=== PATIENT | male | born 1945 | race Caucasian/White ===

== ENCOUNTER → 2017-04-29 | Outpatient (CLI) | payer OTHER ==
[~2017-04-29] VITALS: Ht 165.1 cm; Wt 92.6 kg
[2017-04-29 16:10] VITALS: BP 144/61; PULSE 60; Ht 165.1 cm; Wt 92.6 kg
== END | disposition home or self-care (01) ==
LOC: C.NEUR 11:59
PROVIDERS: ATTEND Physician Assistant
DX: G47.33 Obstructive sleep apnea (adult) (pediatric) (principal)

== ENCOUNTER → 2017-06-27 | Outpatient (CLI) | payer OTHER ==
--- NOTE | 2017-06-28 06:20 | PAP/PSG TECHNICIAN REPORT ---
[facility] [employer] Polysomnogram Report Study name: None Report date: 06/28/2017 Study date: 06/27/2017 Referring Physician: Clemencia Swanson PA-C, PA-C Name: KERRI ARAUJO Interpreting Physician: Yury Burkett M.D. 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 Sex: Male Age: 71 StudyType: PSG PAP Weight: 204 lbs Height: 71 years, Height 5' 5" Neck Circum: 17.75 inches BMI: 33.94 Medications: Lamotrigine 250 mg, Primidone 250 mg, Crestor 40 mg, Folic Acid 1 mg, Aspirin 81 mg, Fish Oil 1200 mg, Glucosamine 1500 mg, Calcium/Vitamin D 600 mg Patient History 71 yr. old male here for a ASV sleep study. Patient is averaging a high AHI on BiPAP with a rate. Parameters Monitored NPSG: E1-M2, E2-M1, Fp1-M2, Fp2-M1, F3-M2, F4-M2, F4-M1, C3-M2, C4-M2, C4-M1, O1-M2, O2-M2, O2-M1, T3-M2, T4-M1, P3-M2, P4-M1, CHIN1, CHIN2, HR, EKG, Legs, PFLOW, SNOR, FLOW, CFLOW, Tidal Volume, THOR, ABDO, SpO2, PLTH, CPRESS, ETCO2 Wave, ETCO2, pH Sleep Architecture Sleep Stages Time at Lights Off 11:03:24 PM STAGES Time (min.) TST (%) Time at Lights On 5:42:54 AM Wake 38.5 -- Total Recording Time (TRT) 400.00 min. N1 26.0 7 Total Sleep Period (TSP) 396.5 min. N2 186.5 52 Total Sleep Time (TST) 361.0min. N3 67.0 19 Awake Time 38.5 min. REM 81.5 23 Wake after Sleep Onset 35.5 min. Sleep Efficiency (SE) 90 % Sleep Onset Latency (MONA) 3.0 min. Number of Stage 1 Shifts None Awakenings 15 Stage Changes 71 Number of REM periods 5 REM 81.5 23 REM Latency 75.5 min. NREM 279.5 77 Body Position Analysis Supine Right Left Side Prone Vertical Total Sleep Time (min.) 81.8 0.0 284.9 284.94 0.0 0.9 Total Sleep Time (%) 21% 0% 79% 79 0% N/A% Total Sleep Time REM (min.) 25.5 0.0 56.0 None 0.0 0.0 Total Sleep Time NREM (min.) 50.6 0.0 228.9 None 0.0 0.0 Intermittent Wake (min.) 5.7 0.0 31.8 None 0.0 0.9 Total Sleep Period (%) 20% None None None None None Arousals Myoclonus (PLM) * Events Count Index Events Count Index Spontaneous 2 0 Events Awake (PLMW) 12 18.7 Respiratory 1 0.3 Events Asleep w/ Arousal (PLMA) 11 1.8 PLM 11 2 Events Asleep w/o Arousal (PLMS) 23 3.8 Snoring 2 0 Total Asleep 34 5.7 Total 16 3 Total 46 7 Respiratory Analysis * CA OA MA CH H RERA Total Count 1 0 0 0 16 0 17 Index 0.2 0.0 0.0 0 2.7 0 2.8 Mean Duration 17.9 0.0 0.0 0.00 22.7 0.0 22.4 Longest Duration 17.9 0.0 0.0 0.00 0.0 0.0 46.9 Respiratory Event Summary Total Supine ~Supine Right Left Prone REM NREM Apneas Count 1 1 0 N/A 0 N/A 0 1 Index 0.2 1 0 N/A 0.0 N/A 0 0 Hypopneas (4% Desat) Count 16 8 8 N/A 8 N/A 0 16 Index 2.7 6.3 2 N/A 1.7 N/A 0.0 3.4 Apneas & All Hypopneas Count 17 9 8 N/A 8 N/A 0 17 Index 2.8 7 2 N/A 2 N/A 0.0 3.6 Respiratory Events (Thermal Molder+All Hyp+RERA) Count 17 9 8 N/A 8 N/A 0 17 Index 2.8 7 2 N/A 1.7 N/A 0.0 3.6 Respiratory Related Arousal Count 1 9 0 N/A 0 N/A 0 2 Index 0.3 2 0 N/A 0 N/A 0 0 Snoring Analysis Supine Right Left Prone REM NREM Total Snore duration 3.8 min Snores count 106 N/A 57 N/A 2 161 163 Snore mean duration 1.4 Sec Snores index 84 N/A 12 N/A 1.5 34.6 27.1 TST with snoring (%) 1.1% Desaturation Event Summary: Minimum %SpO2 Event Count Mean/Min/Max Duration(sec.) Desaturation Index % Time In Bed > 90 23 25.2 / 6.5 / 55.0 6.3 57.9 86 - 90 15 23.4 / 12.3 / 40.8 5.9 40.4 81 - 85 2 14.4 / 7.0 / 21.8 19.2 1.6 76 - 80 0 N/A 0.0 0.0 71 - 75 0 N/A 0.0 0.0 66 - 70 0 N/A 0.0 0.0 61 - 65 0 N/A 0.0 0.0 56 - 60 0 N/A 0.0 0.0 51 - 55 0 N/A 0.0 0.0 < 50 0 N/A 0.0 0.0 Total REM NREM Awake <50% 0.0 min. 0.0 min. 0.0 min. 0.0 min. 51 - 60% 0.0 min. 0.0 min. 0.0 min. 0.0 min. 61 - 70% 0.0 min. 0.0 min. 0.0 min. 0.0 min. 71 - 80% 0.0 min. 0.0 min. 0.0 min. 0.0 min. 81 - 90% 159.2 min. 39.2 min. 110.6 min. 9.5 min. 91 - 100% 219.3 min. 41.2 min. 164.8 min. 13.3 min. Average 91 91 91 90 Minimum SpO2 80 86 84 80 Desaturation Event Index 4.4 0.0 4.9 9.4 # Desat. Events below 89% 21 N/A 15 6 Time(%) with Saturation below 89% 17.9 3.3 12.9 1.7 Time(min.) with Saturation below 89% 67.8 12.7 48.8 6.3 Time (mins) REM (mins) NREM (mins) % of TST SpO2 Below 90% 16 N/A N16 25.5 SpO2 Below 88% 7 0 0 7 Heart Rate Analysis Min (bpm) Max (bpm) Average (bpm) Awake 48 196 61 NREM 50 127 56 REM 52 73 57 Overall 50 127 56 Supplemental O2 Values Minimum O2 level: None Value Start Time End Time [employer] Comments Mr. Araujo slept in the left and supine positions. No cardiac arrhythmia or PLMs noted. No bruxism noted. ASV was initiated at : Max Pressure:25.0 cm H2O Min EPAP:4.0 cm H2O Max EPAP:15.0 cm H2O Min PS:4.0 cm H2O Max PS:20.0 cm H2O Rate:Auto Comfort:BiFlex (3) No changes were made to the above settings. However 1 lpm 02 was added at 4:26 am, he was on ASV for 32.5 min AHI was 3.6 and was under 89 % for 56.3 minutes. Oxygen was increased to 2 lpm at 5:00 am. He was on ASV for 356.00 minutes and was under 89% for 61.5 minutes, was under 89% on 1 lpm for 5.2 minutes. Patients own ResMed F20, was used during titration. Mr. Araujo awoke to use the restroom once during the night. Mr. Araujo stated, I slept great. Final: Max Pressure:25.0 cm H2O Min EPAP:4.0 cm H2O Max EPAP:15.0 cm H2O Min PS:4.0 cm H2O Max PS:20.0 cm H2O Rate:Auto Comfort:BiFlex (3) Oxygen: 2 lpm The final report will be interpreted and signed by a sleep physician. The completed physician report will then be placed in the patient medical record. Therapy Event: Therapy (cm H20) 1 Total Time at Pressure (min.) 399.5 TST at Pressure (min.) 361.0 # Periods 1 Sleep Onset (min.) 3.0 REM Onset (min.) 78.5 Sleep Efficiency % 90 Wakefulness (%) 9.6 Wakefulness (min.) 38.5 NREM 1 (%) 6.5 NREM 1 (min.) 26.0 NREM 2 (%) 46.7 NREM 2 (min.) 186.5 NREM 3 (%) 16.8 NREM 3 (min.) 67.0 REM (%) 20.4 REM (min.) 81.5 # Arousals 16 Arousal Index 2.7 # Snore 163 Snore Index 27.1 AHI 2.8 AHI Supine 7.1 AHI Non-Supine 1.7 NREM AHI 3.6 REM AHI 0.0 RDI 2.8 # Obstructive 0 # Central Ap 1 # Mixed 0 # Hypopneas 16 RERAS 0 Total Respiratory Events 17 Time Below SpO2 89.00% (min.) 61.5 Mean NREM SpO2 (%) 91 Mean REM SpO2 (%) 91 Mean Sleep SpO2 (%) 91 Min NREM SpO2 (%) 84 Min REM SpO2 (%) 86 Position Supine (min.) 76.1 Position Non-supine (min.) 284.9 LM Index Sleep 5.7 LM Index NREM 5.2 LM Index REM 7.4 Mean Heart Rate (bpm) 56 Min Heart Rate (bpm) 50
--- NOTE | 2017-07-04 12:02 | POLYSOMNOGRAPH REPORT ---
CLINICAL DATA: A 71-year-old male with BMI of 33.9 referred by Clemencia Swanson for an ASV study. The patient has significant sleep apnea and is still having a high AHI on BiPAP with a backup rate. He was sent for an ASV study. SLEEP ARCHITECTURE: Total sleep period was 396.5 minutes. Total sleep time was 361 minutes divided between 279.5 minutes of non-REM sleep and 81.5 minutes of REM sleep. Sleep onset latency was 3 minutes. REM latency was 75.5 minutes. Sleep efficiency was 90%. Wake after sleep onset was 35.5 minutes. Sleep consisted of stage N1 7%, stage N2 52%, stage N3 19%, and REM 23%. AROUSAL DATA: Sixteen arousals were recorded for an index of 3 per hour. PLM DATA: 34 limb movements during sleep were noted for an index of 5.7 per hour with arousal index of 1.8 per hour. RESPIRATORY DATA: The AHI was 2.8. There was 1 central apneic episode 17.9 seconds in duration. There were 16 hypopneic episodes with a mean duration of 22.7 seconds. OXIMETRY DATA: Transient nocturnal hypoxemia was seen. Oxygen akrmen was 84%. Mean saturation was 91%. Time below 88% was 7 minutes. EKG: Heart ranged from 50-127 beats per minute. No arrhythmias were noted. 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 At that pressure setting, his sleep apnea was controlled. However, he continued to have nocturnal hypoxemia with oxygen desaturations less than 89% for over 56 minutes with an AHI of 3.6. He was started on oxygen at 1 liter per minute and that was increased to 2 liters per minute. At his final pressure setting with oxygen 2 liters per minute, the patient had a residual AHI of 2.8 with correction of his hypoxemia. IMPRESSION: Complex sleep apnea corrected with ASV minimum EPAP 4, maximum EPAP 15, minimal pressure support 4, maximum pressure support 20, maximum pressure 25, auto rate, Bi-Flex setting 3, and 2 liters per minute of oxygen. RECOMMENDATIONS: The patient should be started on the above noted ASV settings and oxygen. He should be seen back in followup within 90 days to document efficacy and compliance. MTDD
== END | disposition home or self-care (01) ==
LOC: C.NEUR 20:00
PROVIDERS: ATTEND Physician Assistant
DX: G47.33 Obstructive sleep apnea (adult) (pediatric) (principal)

== ENCOUNTER → 2017-07-15 | Outpatient (CLI) | payer OTHER ==
[~2017-07-15] VITALS: Ht 165.1 cm; Wt 90.8 kg
[2017-07-15 15:23] VITALS: BP 153/66; PULSE 67; Ht 165.1 cm; Wt 90.8 kg
== END | disposition home or self-care (01) ==
LOC: C.NEUR 12:56
PROVIDERS: ATTEND Physician Assistant
DX: G47.33 Obstructive sleep apnea (adult) (pediatric) (principal)